=== PATIENT | female | born 1970 | race Caucasian/White ===

== ENCOUNTER 2019-09-28 09:30 | Outpatient (CLI) | payer OTHER, SELFPAY ==
[2019-09-28 10:16] LABS: Alanine Aminotransferase 29 U/L (4-35); Alkaline Phosphatase 102 U/L (38-126); Aspartate Amino Transferase 42 U/L (14-36); Bilirubin,Total 0.4 mg/dL (0.2-1.3); Blood Urea Nitrogen 11 mg/dL (7-17); Calcium 8.3 mg/dL (8.4-10.2); Carbon Dioxide 24 mmol/L (22-30); Chloride 98 mmol/L (98-107); Cholesterol 204 mg/dL (0-200); Estimated Glomerular Filt Rate > 60; Glucose 282 mg/dL (65-105); HDL Direct 38 mg/dL; Potassium 4.5 mmol/L (3.4-5.0); Sodium 137 mmol/L (137-145); Triglycerides 234 mg/dL (<150)
[2019-09-28 10:27] LABS: LDL Cholesterol Direct 138 mg/dL
[2019-09-28 11:07] LABS: Hemoglobin A1C 12.7 % (<5.7)
== END 2019-09-28 09:31 | disposition home or self-care (01) ==
PROVIDERS: PCP Emergency Medicine; Visit Provider Emergency Medicine
DX: E78.2 Mixed hyperlipidemia (principal); E11.9 Type 2 diabetes mellitus without complications
CPT/HCPCS: 36415; 80053; 80061; 83036

== ENCOUNTER 2020-02-08 07:21 | Outpatient (CLI) | payer OTHER, SELFPAY ==
[2020-02-08 08:23] LABS: Alanine Aminotransferase 30 U/L (4-35); Albumin Level 4.1 g/dL (3.5-5.1); Alkaline Phosphatase 102 U/L (38-126); Aspartate Amino Transferase 42 U/L (14-36); Bilirubin,Total 0.3 mg/dL (0.2-1.3); Blood Urea Nitrogen 14 mg/dL (7-17); Calcium 8.7 mg/dL (8.4-10.2); Carbon Dioxide 25 mmol/L (22-30); Chloride 99 mmol/L (98-107); Cholesterol 168 mg/dL (0-200); Estimated Glomerular Filt Rate > 60; Glucose 269 mg/dL (65-105); HDL Direct 38 mg/dL; Potassium 4.5 mmol/L (3.4-5.0); Sodium 134 mmol/L (137-145); Triglycerides 313 mg/dL (<150)
[2020-02-08 08:36] LABS: Hemoglobin A1C 11.7 % (<5.7)
[2020-02-08 08:40] LABS: LDL Cholesterol Direct 87 mg/dL
== END 2020-02-08 07:22 | disposition home or self-care (01) ==
PROVIDERS: PCP Emergency Medicine; Visit Provider Emergency Medicine
DX: E78.5 Hyperlipidemia, unspecified (principal); E11.9 Type 2 diabetes mellitus without complications
CPT/HCPCS: 36415; 80053; 80061; 83036

== ENCOUNTER 2020-05-18 06:55 | Outpatient (CLI) | payer OTHER, SELFPAY ==
[2020-05-18 08:05] LABS: Alanine Aminotransferase 22 U/L (4-35); Albumin Level 4.4 g/dL (3.5-5.1); Alkaline Phosphatase 75 U/L (38-126); Anion Gap 9 mmol/L (8-16); Aspartate Amino Transferase 30 U/L (14-36); Bilirubin,Total 0.3 mg/dL (0.2-1.3); Blood Urea Nitrogen 12 mg/dL (7-17); Calcium 9.3 mg/dL (8.4-10.2); Carbon Dioxide 30 mmol/L (22-30); Chloride 100 mmol/L (98-107); Cholesterol 163 mg/dL (0-200); Estimated Glomerular Filt Rate > 60; Glucose 140 mg/dL (65-105); HDL Direct 37 mg/dL; Potassium 4.3 mmol/L (3.4-5.0); Sodium 139 mmol/L (137-145); Triglycerides 273 mg/dL (<150)
[2020-05-18 08:15] LABS: Creatinine Urine 110.4 mg/dL
[2020-05-18 08:16] LABS: LDL Cholesterol Direct 85 mg/dL
[2020-05-18 08:19] LABS: MALB Creatinine Ratio 35.7 mg/g (0-30); Microalbumin Urine Random 39.4 mg/L (0-16.7)
== END 2020-05-18 06:56 | disposition home or self-care (01) ==
PROVIDERS: PCP Emergency Medicine; Referring Provider Internal Medicine Endocrinology, Diabetes & Metabolism; Visit Provider Emergency Medicine
DX: E78.5 Hyperlipidemia, unspecified (principal); E11.9 Type 2 diabetes mellitus without complications
CPT/HCPCS: 36415; 80053; 80061; 82043; 82607; 84443

== ENCOUNTER 2020-11-21 09:05 | Outpatient (CLI) | payer OTHER, SELFPAY ==
[2020-11-21 10:17] LABS: Hemoglobin A1C 7.4 % (<5.7)
[2020-11-21 10:20] LABS: Alanine Aminotransferase 20 U/L (4-35); Albumin Level 4.3 g/dL (3.5-5.1); Alkaline Phosphatase 65 U/L (38-126); Anion Gap 8 mmol/L (8-16); Aspartate Amino Transferase 34 U/L (14-36); Bilirubin,Total 0.3 mg/dL (0.2-1.3); Blood Urea Nitrogen 14 mg/dL (7-17); Calcium 8.9 mg/dL (8.4-10.2); Carbon Dioxide 26 mmol/L (22-30); Chloride 104 mmol/L (98-107); Cholesterol 159 mg/dL (0-200); Estimated Glomerular Filt Rate > 60; Glucose 108 mg/dL (65-105); HDL Direct 47 mg/dL; Potassium 4.4 mmol/L (3.4-5.0); Sodium 138 mmol/L (137-145); Triglycerides 189 mg/dL (<150)
[2020-11-21 10:32] LABS: LDL Cholesterol Direct 77 mg/dL
[2020-11-21 10:33] LABS: Add Urine Microscopic? YES; Appearance Urine Clear (Clear); Bilirubin Urine Negative (Negative); Blood Urine Negative (Negative); Color Urine Yellow (Yellow); Glucose Urine UA 3+ mg/dL (Negative); Ketones Urine Negative (Negative); Leukocyte Esterase Ur Negative LEU/UL (Negative); Nitrate Urine Negative (Negative); Protein Urine Negative (Negative); RBC Urine 0-2 /hpf (0-2); Squamous Epithelial Cell Urine Moderate /hpf (Few); Urobilinogen Urine Negative mg/dL (<2.0); WBC Urine 0-3 /hpf
[2020-11-21 10:40] LABS: Specific Grav Ur 1.031 (1.001-1.035)
[2020-11-21 11:15] LABS: Creatinine Urine 107.6 mg/dL
[2020-11-21 11:18] LABS: MALB Creatinine Ratio 29.6 mg/g (0-30); Microalbumin Urine Random 31.8 mg/L (0-16.7)
== END 2020-11-21 09:06 | disposition home or self-care (01) ==
PROVIDERS: PCP Emergency Medicine; Referring Provider Internal Medicine Endocrinology, Diabetes & Metabolism; Visit Provider Emergency Medicine
DX: R35.0 Frequency of micturition (principal); E11.9 Type 2 diabetes mellitus without complications; E78.5 Hyperlipidemia, unspecified
CPT/HCPCS: 36415; 80053; 80061; 81001; 82043; 83036

== ENCOUNTER → 2021-01-02 08:36 | Outpatient (CLI) | payer OTHER, SELFPAY ==
--- NOTE | ~2021-01-02 | MM_ITS ---
EXAMINATION: MM screening hanny BI w reynaldo HISTORY: Screening mammogram TECHNIQUE: Craniocaudal and mediolateral oblique 3-D tomosynthesis images were obtained and synthetic 2-D images were generated. CAD analysis was submitted and interpreted. COMPARISON: No prior mammogram is available for comparison at this institution. BREAST PARENCHYMAL COMPOSITION: There are scattered areas of fibroglandular density. FINDINGS: Bilateral mammographic asymmetry. Bilateral diagnostic mammography is recommended, with ult rasound if required. IMPRESSION: 1. Bilateral mammographic asymmetry 2. Bilateral diagnostic mammography is recommended, with ultrasound if required BI-RADS Category 0: Incomplete: Needs additional imaging evaluation. Reviewed, dictated and finalized at location A.
== END ==
PROVIDERS: PCP Emergency Medicine; Visit Provider Emergency Medicine
DX: Z12.31 Encounter for screening mammogram for malignant neoplasm of breast (principal); R92.8 Other abnormal and inconclusive findings on diagnostic imaging of breast
CPT/HCPCS: 77063; 77067

== ENCOUNTER → 2021-02-02 08:33 | Outpatient (CLI) | payer OTHER, SELFPAY ==
--- NOTE | ~2021-02-02 | MMUS_ITS ---
EXAMINATION: MM diagnostic hanny BI w reynaldo, US breast BI limited HISTORY: Bilateral breast asymmetries on screening mammogram TECHNIQUE: Additional 3-D tomosynthesis images of the breasts were performed and synthetic 2-D images were generated. CAD analysis was submitted and interpreted. High resolution limited bilateral breast ultrasound was performed. COMPARISON: 01/02/2021 BREAST PARENCHYMAL COMPOSITION: There are scattered areas of fibroglandular density. FINDINGS: MAMMOGRAPHIC FINDINGS: Right breast: Focal asymmetry in the upper outer quadrant of the right breast disperses with spot com pression. There is no suspicious mass, calcification, or architectural distortion. Left breast: No suspicious mass, calcification, or architectural distortion are identified with spot compression of the breast. ULTRASOUND: There is no evidence of focal abnormal solid or cystic mass in the vicinity of the mammographic findi ngs in question. IMPRESSION: 1. No mammographic or sonographic evidence of malignancy. 2. Recommend routine screening mammography in one year. BI-RADS Category 1: Negative Reviewed, dictated and finalized at location A. IMPRESSION: 1. No mammographic or sonographic evidence of malignancy. 2. Recommend routine screening mammography in one year. BI-RADS Category 1: Negative
== END ==
PROVIDERS: PCP Emergency Medicine; Visit Provider Emergency Medicine
DX: N64.89 Other specified disorders of breast (principal)
CPT/HCPCS: 76642; 77062; 77066; G0279

== ENCOUNTER 2021-05-18 09:26 | Outpatient (CLI) | payer OTHER, SELFPAY ==
[2021-05-18 10:37] LABS: Alanine Aminotransferase 18 U/L (4-35); Albumin Level 4.2 g/dL (3.5-5.1); Alkaline Phosphatase 66 U/L (38-126); Anion Gap 10 mmol/L (8-16); Aspartate Amino Transferase 29 U/L (14-36); Bilirubin,Total 0.5 mg/dL (0.2-1.3); Blood Urea Nitrogen 14 mg/dL (7-17); Calcium 9.1 mg/dL (8.4-10.2); Carbon Dioxide 25 mmol/L (22-30); Chloride 104 mmol/L (98-107); Cholesterol 108 mg/dL (0-200); Estimated Glomerular Filt Rate > 60; Glucose 130 mg/dL (65-110); HDL Direct 45 mg/dL; Potassium 4.4 mmol/L (3.4-5.0); Sodium 139 mmol/L (137-145); Triglycerides 155 mg/dL (<150)
[2021-05-18 10:48] LABS: LDL Cholesterol Direct 44 mg/dL
[2021-05-18 11:29] LABS: Hemoglobin A1C 7.3 % (<5.7)
== END 2021-05-18 09:27 | disposition home or self-care (01) ==
LOC: ANHLAB 09:28
PROVIDERS: PCP Emergency Medicine; Visit Provider Internal Medicine Endocrinology, Diabetes & Metabolism
DX: E78.5 Hyperlipidemia, unspecified (principal); E11.65 Type 2 diabetes mellitus with hyperglycemia; I10 Essential (primary) hypertension
CPT/HCPCS: 36415; 80053; 80061; 82607; 83036

== ENCOUNTER → 2021-06-07 02:13 | Outpatient (CLI) | payer OTHER, SELFPAY ==
[2021-06-07 18:59] LABS: SARS-CoV-2 RNA PCR Negative
== END ==
PROVIDERS: PCP Emergency Medicine; Visit Provider Internal Medicine Cardiovascular Disease
DX: Z01.812 Encounter for preprocedural laboratory examination (principal); Z20.822 Contact with and (suspected) exposure to COVID-19
CPT/HCPCS: C9803; U0003; U0005

== ENCOUNTER 2021-06-09 14:38 | Outpatient (CLI) | payer OTHER, SELFPAY ==
--- NOTE | ~2021-06-09 | US_ITS ---
EXAMINATION: US carotid duplex BI DATE: 06/09/2021 15:25 INDICATION: Carotid stenosis TECHNIQUE: Grayscale, color Doppler, and pulsed Doppler images of the cervical carotid arteries were obtained. The degree of vessel stenosis is placed in one of the following categories: normal, <50%, 5 0-69%, >=70% but less than near-occlusion, near-occlusion, or total occlusion. Note that percent sten osis relative to normal distal artery lumen diameter is indirectly measured from velocity measurement s as described by Willard, et al. Radiology 2003; 229:340-346. Notes: Normal: Peak systolic velocity <125 centimeters/sec and no plaque <50%. Peak systolic velocity <125 ( EDV <40; ICA/CCA PSV ratio <2.0; used these factors only a tandem lesions or low cardiac output or co ntralateral disease) 50-69 %: PSV 125-230 (EDV 40-100; ratio 2-4) >= 70% but less than near occlusion: PSV greater than 230 (EDV > 100; ratio> 4.0) Near Occlusion: PSV that is variable; markedly narrowed lumen Occlusion: Absent flow on color/spectral Doppler and no lumen on figueroa scale. COMPARISON: None. FINDINGS: RIGHT: The right common carotid artery (CCA) peak systolic velocity (PSV) is 106 cm/s. The right internal ca rotid artery (ICA) PSV is 136 cm/s. The right ICA end-diastolic velocity (EDV) is 41 cm/s. The right ICA/CCA PSV ratio is 1.3. The external carotid artery (ECA) PSV is 144 cm/s. There is antegrade flow in the right vertebral artery. LEFT: The left CCA PSV is 92 cm/s. The left ICA PSV is 97 cm/s. The left ICA EDV is 31 cm/s. The left ICA/C CA PSV ratio is 1.0. The ECA PSV is 124 cm/s. There is antegrade flow in the left vertebral artery. IMPRESSION: 1. 50-69% stenosis in the right internal carotid artery by sonographic criteria. 2. Less than 50% stenosis in the left internal carotid artery by sonographic criteria. Reviewed, dictated and finalized at location A. [facility] IMPRESSION: 1. 50-69% stenosis in the right internal carotid artery by sonographic criteria . 2. Less than 50% stenosis in the left internal carotid artery by sonographic cr iteria.
== END 2021-06-09 14:39 | disposition home or self-care (01) ==
PROVIDERS: PCP Emergency Medicine; Visit Provider Emergency Medicine
DX: I65.23 Occlusion and stenosis of bilateral carotid arteries (principal)
CPT/HCPCS: 93880

== ENCOUNTER 2021-06-10 01:41 | Day surgery (SDC) | payer OTHER, SELFPAY ==
[2021-06-09 18:30] VITALS: BMI 36.6
[2021-06-10] VITALS (8 sets, daily range): BP systolic 118–147; BP diastolic 62–88; PULSE 79–88; RESP 14–20; TEMP 36.1; O2SAT 95–99; BMI 36.9
[2021-06-10 07:38] LABS: Basophils Absolute Auto 0.1 K/mm3 (0.0-0.1); Basophils Percent Auto 0.8 % (0.2-1.2); Eosinophils Absolute Auto 0.6 K/mm3 (0-0.3); Eosinophils Percent Auto 8.2 % (0-4.4); Hematocrit 25.5 % (37.0-47.0); Immature Granulocyte Absolute 0.02 K/mm3 (0.00-0.031); Immature Granulocyte Percent A 0.3 % (0-0.5); Lymphocytes Absolute Auto 1.51 K/mm3 (0.9-3.2); Lymphocytes Percent Auto 19.3 % (18.3-44.2); Mean Corpuscular HGB Conc 26.7 g/dl (32-36); Mean Corpuscular Hemoglobin 17.1 pg (26-34); Mean Corpuscular Volume 64.1 fl (80-100); Monocytes Absolute Auto 0.7 K/mm3 (0.1-0.6); Monocytes Percent Auto 8.5 % (2.6-8.5); Neutrophils Absolute Auto 4.9 K/mm3 (1.3-6.7); Neutrophils Percent Auto 62.9 % (45.5-73.1); Platelet Count Result 321 k/mm3 (150-375); Red Blood Count 3.98 M/mm3 (4.2-5.4); Red Cell Distribution Width 20.2 % (11.5-14.5); White Blood Count 7.8 K/mm3 (4.5-10.0)
[2021-06-10 07:50] LABS: Anion Gap 10 mmol/L (8-16); Blood Urea Nitrogen 19 mg/dL (7-17); Calcium 8.7 mg/dL (8.4-10.2); Carbon Dioxide 24 mmol/L (22-30); Chloride 106 mmol/L (98-107); Estimated CRCL calculation 86 ml/min; Estimated Glomerular Filt Rate > 60; Glucose 164 mg/dL (65-110); Potassium 4.3 mmol/L (3.4-5.0); Sodium 140 mmol/L (137-145)
[2021-06-10 07:56] LABS: Hemoglobin 6.8 g/dL (12.0-15.0)
[2021-06-10 07:57] LABS: Hypochromasia 3+ (NORMAL); Ovalocytes 1+ (NORMAL); Platelet Estimate Adequate (Adequate); Polychromasia 1+ (NORMAL)
[2021-06-10 08:31] LABS: Beta HCG Quantitative < 2.39 mIU/ML
--- NOTE | 2021-06-10 08:39 | WPDHPUPDATE1 ---
History and Physical Update Update Date/Time: 06/10/21 08:39 50-year-old female with diabetes and hyperlipidemia who presents with significant MATA. She had early positive regular treadmill stress test, exercising for 2.[address] depression as well as MATA. Her echo showed minimal aortic stenosis, LVH, diastolic dysfunction, EF 69%, aortic valve area 1.2 cm2 with a mean gradient of 10 mmHg. She has had cardiac catheterization for suspected CAD. History and Physical has been reviewed, including an updated exam of the patient. There are NO changes in the patient's condition. Risks, benefits, and alternatives have been discussed and questions answered. Patient agrees to proceed with procedure.
--- NOTE | 2021-06-10 08:42 | WPDMODSED ---
Moderate Sedation Note-Pt Data Patient Data Diagnosis: MATA, early positive treadmill stress test Present Complaint: Patient with significant MATA who had a treadmill stress test showing ST depression after 2.2 minutes of exercise. No typical angina. Echo showed EF 69%, minimal , MAUREEN 1.2 cm2, LVH and diastolic dysfunction. Here for cardiac catheterization for suspicion of CAD. Significant anemia noted on admission labs. Procedure to be performed/Plan: Conscious sedation Left heart catheterization Selective coronary angiography Left ventriculography Possible PCI Allergies Allergy/AdvReac Type Severity Reaction Status Date / Time No Known Allergies Allergy Verified 06/10/21 07:32 Home Medications Medication Instructions Recorded Confirmed Type aspirin 81 mg tablet,delayed 81 mg PO DAILY 09/30/19 06/10/21 History release blood sugar diagnostic #10 each 09/30/19 05/19/21 History lancets #50 each 09/30/19 05/19/21 History blood sugar diagnostic #200 each 01/14/20 05/19/21 Rx blood-glucose meter #1 each 01/14/20 05/19/21 Rx lancets 32 gauge #200 each 01/14/20 05/19/21 Rx empagliflozin 10 mg tablet 10 mg PO DAILY 90 Days #90 tablet 03/29/21 06/10/21 Rx glipizide 5 mg tablet 5 mg PO BID 90 Days #180 tablet 03/29/21 06/10/21 Rx metformin 1,000 mg tablet 1,000 mg PO BID 90 Days #180 tablet 03/29/21 06/10/21 Rx rosuvastatin 20 mg tablet 20 mg PO DAILY #90 tablet 03/29/21 06/10/21 Rx semaglutide 1 mg/dose (2 mg/1.5 1 mg SUB-Q WEEKLY 84 Days #9 ml 03/29/21 06/10/21 Rx mL) subcutaneous pen injector lisinopril 2.5 mg tablet 2.5 mg PO DAILY #90 tablet 06/08/21 06/10/21 Rx multivitamin with minerals [All 1 tablet PO DAILY 06/09/21 06/10/21 History Purpose Multivitamin-Min] Current Medications: Active Medications Sodium Chloride (Normal Saline Iv) 500 mls @ 100 mls/hr IV CONT .Q5H LENORA Sedation/Anesthesia: No previous sedation/anesthesia problems (including family history). 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 Smoking packs per day: 0 Smoking cigarettes per day: 0.0 Years smoked: 0 Smoking pack-years: 0.00 Smoking status: Never smoker Second hand tobacco smoke exposure: Yes Alcohol intake: never Substance use: never Substance use type: does not use Living arrangements: with family Gender identity (if verbalized by the patient): Female Sexual Orientation (if Verbalized by the Patient): Straight or Heterosexual Spiritual care concerns: No Mod Sed Physical Exam Physical Exam Pre Procedural Exam: Normal: Appearance, Eyes, Ears, Nose, Neck, Throat, Lungs, Heart Size, Heart Rate (2/6 VERNELL upper sternal borders), Heart Rhythm, Neuro Exam, Abdomen, Extremities (Intact pedal pulses, good David's test on right hand) and Skin and Variation: Airway (Dental caries and missing teeth) Hours since solid foods: 12 Hours since liquid intake: 12 Mallampati Classification: class III Internal Medicine - PN: Obj Da Vital Signs Vital Signs: Vital Signs - 24 hr 06/10/21 07:35 Temperature 96.9 F L Pulse Rate 88 Respiratory Rate 15 Blood Pressure 147/76 H Pulse Oximetry 99 Meds/Results Medications: Active Medications Generic Name Dose Route Start Last Admin Trade Name Freq PRN Reason Stop Dose Admin Sodium Chloride 500 mls @ 100 mls/hr 06/10/21 07:00 Normal Saline Iv IV CONT .Q5H LENORA Labs CBC & Chem
--- NOTE | 2021-06-10 10:13 | PM.OP ---
Procedure Note - Brief Procedure Note - Brief Date of procedure: 06/10/21 Pre-op diagnosis: abnormal stress test Post-op diagnosis: same Procedure performed: Left heart catheterization with conscious sedation Description of procedure: Uneventful left heart catheterization right radial approach Anesthesia: local (With conscious sedation) Surgeon: Anahi Allison MD Complications: No immediate complications Condition: stable Disposition: observation Findings: Normal coronary arteries Hyperdynamic left ventricle Patient noted to be moderately anemic which may be causing her symptoms of dyspnea.
--- NOTE | 2021-06-10 10:14 | WPDCARDPROC ---
Cardiac Cath Procedure Note Date of procedure:: 06/10/21 Performing physician:: Anahi Allison MD Indication:: MATA Early positive stress test Brief clinical history:: 50-year-old female diabetic with hyperlipidemia who has noted significant MATA recently. Her treadmill stress test showed she could walk for 2.2 minutes but developed significant MATA as well as ST segment depression consistent with ischemia. Her echo showed normal LV function EF 67%, diastolic dysfunction, LVH, and minimal aortic stenosis with a mean gradient of 10 mmHg. She is undergoing cardiac catheterization for suspicion of underlying coronary disease. . Procedure Procedure performed:: Procedure: 1. Conscious sedation 2. Left heart catheterization 3. Selective Coronary angiography 4. Left ventriculography Sedation/Medication given:: Conscious sedation: The patient has no known prior history of adverse affects of conscious sedation. Oropharynx was clear. The patient is deemed a good candidate for conscious sedation. Conscious sedation began at: 0909 Conscious sedation ended at: 0943 Total conscious sedation time: 34 minutes Medications: Versed 2 mg IV push and fentanyl 50 mcg IV push The patient had continuous hemodynamic monitoring, and was also continuously monitored by: Olmstead RN The patient tolerated conscious sedation well. Access site:: Right radial artery Estimated blood loss:: 5 cc Procedure note:: Catheters: 5 [facility] taper arterial jagdish, 5 [facility] Deisy catheters, 5 [facility] pigtail catheter Detailed procedure: After informed consent the patient brought to the track repair laborer. David test was normal. The right radial area was prepped and draped in the usual fashion. After conscious sedation and local anesthesia the right radial artery was punctured with the micro puncture technique using vascular ultrasound guidance and cannulated with the arterial sheath. Selective Coronary angiography was performed with the coronary catheter in multiple projections. This were withdrawn. The pigtail catheter was advanced into the central circulation and left ventricle for pressure measurements and left ventriculography which was performed in the ALBARADO projection. This was withdrawn. Later the arterial sheath was removed and hemostasis was obtained using local pressure with a radial artery band. The patient tolerated the procedure well with no complications. Estimated blood loss was negligible. Findings:: Pressures: Post angiography, the LV pressure was 120/6 mmHg and aorta was 130/60 mmHg. Right coronary artery: The right coronary artery is dominant and was free of disease. It supplied most of the apex. Left coronary artery: The left coronary artery was free of disease. Left ventriculography: Left ventriculography revealed hyperdynamic left ventricular systolic function, EF 75-80%, with no mitral regurgitation . Conclusion:: 1. Normal coronary arteries. 2. Hyperdynamic left ventricular systolic function 3. No significant aortic valve gradient 4. Moderate anemia Recommendations: We will discontinue aspirin and start the patient on iron sulfate 25 m BID. Follow-up with Dr. Delcid for the anemia which may be related to heavy menstrual loss per the patient. Increase physical activity with regular exercise and pursue heart healthy lifestyle. Echo in 3 -5 years to evaluate for progression of her aortic valve disease.
--- NOTE | 2021-06-10 12:37 | SUR.PHASEII ---
IV D/c'd. Catheter intact. No redness or swelling at the site. Discharge instructions reviewed with patient and spouse with stated understanding. Right radial puncture site without signs of hematoma or bleeding. Brisk capillary refill present to right hand. TR Band removed with bandaid intact. Armboard remains to right arm and pt instructed to remove in six hours. Discharged via wheelchair to personal vehicle with spouse driving.
== END 2021-06-10 12:40 | disposition home or self-care (01) ==
PROVIDERS: PCP Emergency Medicine; Visit Provider Internal Medicine Cardiovascular Disease
PROC: 4A023N7 Measurement of Cardiac Sampling and Pressure, Left Heart, Percutaneous Approach (ICD-10-PCS; CPT 93452; principal; 2021-06-10 08:30)
DX: R94.39 Abnormal result of other cardiovascular function study (principal); D64.9 Anemia, unspecified; R06.09 Other forms of dyspnea; E11.9 Type 2 diabetes mellitus without complications; I10 Essential (primary) hypertension; E78.5 Hyperlipidemia, unspecified; Z79.84 Long term (current) use of oral hypoglycemic drugs; Z79.899 Other long term (current) drug therapy
CPT/HCPCS: 36415; 80048; 84702; 84703; 85025; 93458; C1887; C1894; C9803; J1644; J2250; J3010; J7040; U0003; U0005

== ENCOUNTER 2021-06-11 09:50 | Outpatient (CLI) | payer OTHER, SELFPAY ==
[2021-06-11 10:56] LABS: Iron 114 ug/dL (37-170)
[2021-06-11 11:05] LABS: Percent Iron Saturation 24 % (20-50)
[2021-06-15 14:46] LABS: Red Blood Cell Folate >1000 ng/mL RBC (>280)
== END 2021-06-11 09:51 | disposition home or self-care (01) ==
PROVIDERS: PCP Emergency Medicine; Visit Provider Emergency Medicine
DX: D64.9 Anemia, unspecified (principal)
CPT/HCPCS: 36415; 82607; 82747; 83540; 83550

== ENCOUNTER 2021-12-26 10:59 | Emergency (ER) | payer OTHER, SELFPAY ==
[2021-12-26 11:19] VITALS: BP 120/67; PULSE 87; RESP 18; TEMP 36.3; O2SAT 99
--- NOTE | 2021-12-26 12:07 | ED.URI ---
HPI - URI/Sore Throat General Chief Complaint: Upper Respiratory Infection Stated Complaint: + covid home test History of Present Illness HPI Narrative: 51-year-old female who presents to [facility] care with complaints of feeling cold chills on Monday with noting elevated temperature up to 101.9 on Monday, some nasal drainage and dry cough. She tested at home today and was COVID positive but work will not accept a home test. Patient states tested positive on Monday she went to [facility] on and tested negative.Patient denies any acute cough or any shortness of breath has been taking Motrin fo her fever. Patient reports that she has had COVID vaccinations but no booster, has had flu shot. MD elicited complaint: other (COVID) Pertinent past history: other ( COVID-positive) Onset (ago): day(s) (3) Treatments prior to arrival: ibuprofen Related Data Home Medications Medication Instructions Recorded Confirmed blood sugar diagnostic (Contour #10 ea 09/30/19 08/24/21 Test Strips) lancets (Lancets,Ultra Thin) #50 ea 09/30/19 08/24/21 multivitamin with minerals 1 tablet PO DAILY 06/09/21 08/24/21 mecobalamin (vitamin B12) 5,000 1 mcg PO DAILY 12/26/21 12/26/21 mcg disintegrating tablet Allergies Allergy/AdvReac Type Severity Reaction Status Date / Time No Known Allergies Allergy Verified 12/26/21 11:49 Review of Systems Review of Systems: CONSTITUTIONAL: Positive fever, chills, or sweats. EYES: Denies visual changes, redness, or discharge. ENT: Positive for rhinorrhea, congestion,no sore throat, or otalgia. CARDIOVASCULAR: Denies chest pain, palpitations, or edema. RESPIRATORY: Positive for cough denies dyspnea. GASTROINTESTINAL: Denies abdominal pain, nausea, vomiting, or diarrhea. GENITOURINARY: Denies dysuria or hematuria. SKIN: Denies rash or itching. MUSCULOSKELETAL: Denies back pain, joint pain, or myalgia. NEUROLOGIC: Denies headache, numbness, or weakness. PSYCHIATRIC: Denies anxiety or depression. [facility] Past Medical History Medical History Acute non-recurrent frontal sinusitis Body mass index (BMI) of 50-59.9 in adult (07/05/16) Body mass index [BMI] 36.0-36.9, adult (07/05/16) Body mass index [BMI] 37.0-37.9, adult (09/02/17) Body mass index [BMI] 38.0-38.9, adult (04/27/17) Cellulitis of skin Diabetes mellitus HLD (hyperlipidemia) HTN (hypertension) Family History Family History Father Acute myocardial infarction, Onset Age: 74 Heart attack or sudden cardiac age 74 Mother Heart disease of heart attack and sepsis age 72 Diabetes mellitus Other Chest pain Social History Social History Social History: , 1 daughter, 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 Smoking packs per day: 0 Smoking cigarettes per day: 0.0 Years smoked: 0 Smoking pack-years: 0.00 Smoking status: Never smoker Second hand tobacco smoke exposure: Yes Alcohol intake: never Substance use: never Substance use type: does not use Gender identity (if verbalized by the patient): Female Sexual Orientation (if Verbalized by the Patient): Straight or Heterosexual Spiritual care concerns: No Comments At time of signature, agree with nursing past medical, surgical, social and family history. There is no relevant family history pertinent to the presenting complaint Exam Narrative: GENERAL: Well-appearing, well-nourished, and in no acute distress. HEAD: Normocephalic, atraumatic. EYES: PERRLA and EOMI. ENT: Nares with minimal redness, clear rhinorrhea no epistaxis. Mucous membranes moist.TM's normal with good light reflex, throat pink with no lesions or exudates or any tonsil swelling NECK: Supple.no lymphadenopathy CHEST: Clear to auscultation. No respiratory distress.SAO2 99% on room air HEART: R
== END 2021-12-26 12:26 | disposition home or self-care (01) ==
PROVIDERS: Emergency Provider Registered Nurse; PCP Emergency Medicine
DX: U07.1 COVID-19 (principal); E11.9 Type 2 diabetes mellitus without complications; E78.5 Hyperlipidemia, unspecified; I10 Essential (primary) hypertension
CPT/HCPCS: 87426; 99212; C9803; G0463

== ENCOUNTER 2022-06-13 10:00 | Outpatient (CLI) | payer OTHER, SELFPAY ==
[2022-06-13 10:33] LABS: Anion Gap 11 mmol/L (8-16); Blood Urea Nitrogen 16 mg/dL (7-17); Calcium 8.6 mg/dL (8.4-10.2); Carbon Dioxide 21 mmol/L (22-30); Chloride 107 mmol/L (98-107); Cholesterol 135 mg/dL (0-200); Estimated Glomerular Filt Rate > 60; Glucose 182 mg/dL (65-110); HDL Direct 41 mg/dL; Sodium 139 mmol/L (137-145); Triglycerides 211 mg/dL (<150)
[2022-06-13 10:45] LABS: LDL Cholesterol Direct 56 mg/dL
[2022-06-13 11:02] LABS: Creatinine Urine 65.9 mg/dL
[2022-06-13 11:07] LABS: MALB Creatinine Ratio 33.5 mg/g (0-30); Microalbumin Urine Random 22.1 mg/L (0-16.7)
== END 2022-06-13 10:01 | disposition home or self-care (01) ==
PROVIDERS: PCP Emergency Medicine; Visit Provider Internal Medicine Endocrinology, Diabetes & Metabolism
DX: E11.65 Type 2 diabetes mellitus with hyperglycemia (principal); E78.5 Hyperlipidemia, unspecified
CPT/HCPCS: 36415; 80048; 80061; 82043; 84443

== ENCOUNTER 2022-10-10 01:55 | Emergency (ER) | payer OTHER, SELFPAY ==
[2022-10-10 01:56] VITALS: BP 174/75; PULSE 81; RESP 16; TEMP 36.7; O2SAT 100
[2022-10-10 02:56] VITALS: BP 164/74; PULSE 81; RESP 16; TEMP 37.3; O2SAT 100
--- NOTE | 2022-10-10 03:02 | ED.DENTAL ---
HPI - Dental/Oral General Chief complaint: Dental/Oral Stated complaint: right sided dental abscess Time Seen by Provider: 10/10/22 02:35 History of Present Illness HPI Narrative: Patient is a 52-year-old female here for evaluation of right-sided dental pain over the past several days. Patient has numerous dental caries and cracked teeth. She has a dentist but has been unable to get into see them recently. Denies any trismus, difficulty tolerating her secretions, fevers or chills, nausea or vomiting. Has used ibuprofen and Tylenol with moderate relief of her symptoms. Related Data Home Medications Medication Instructions Recorded Confirmed blood sugar diagnostic (Contour #10 ea 09/30/19 09/07/22 Test Strips) lancets (Lancets,Ultra Thin) #50 ea 09/30/19 09/07/22 multivitamin with minerals 1 tablet PO DAILY 06/09/21 09/07/22 mecobalamin (vitamin B12) 5,000 1 mcg PO DAILY 12/26/21 09/07/22 mcg disintegrating tablet Allergies Allergy/AdvReac Type Severity Reaction Status Date / Time No Known Allergies Allergy Verified 10/10/22 01:56 Review of Systems Review of Systems: Gen.: Denies fevers or chills Eyes: Denies eye pain or visual change ENT: Reports dental pain Respiratory: Denies shortness of breath or cough CV: Denies chest pain or palpitations GI: Denies abdominal pain nausea, emesis or diarrhea denies burning, urgency, frequency or hematuria Musculoskeletal: Denies back pain or muscle pain Neuro: Denies numbness, tingling, weakness or focal weakness Skin: Denies rash Except as documented, all other systems reviewed and negative [facility] Past Medical History Medical History Acute non-recurrent frontal sinusitis Anemia Bilateral carotid bruits Body mass index (BMI) of 50-59.9 in adult (07/05/16) Cellulitis of skin COVID-19 HLD (hyperlipidemia) HTN (hypertension) Hypertriglyceridemia Low vitamin B12 level Stress incontinence Type 2 diabetes mellitus with hyperglycemia, without long-term current use of insulin Vitamin D deficiency Surgical History Surgical History H/O vaginal surgery removal of lump Family History Family History Father Acute myocardial infarction, Onset Age: 74 Heart attack or sudden cardiac age 74 Mother Heart disease of heart attack and sepsis age 72 Diabetes mellitus Other Chest pain Social History Social History Social History: , 1 daughter, 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 Smoking packs per day: 0 Smoking cigarettes per day: 0.0 Years smoked: 0 Smoking pack-years: 0.00 Smoking status: Never smoker Second hand tobacco smoke exposure: Yes Alcohol intake: never Substance use: never Substance use type: does not use Living arrangements: with family Gender identity (if verbalized by the patient): Female Sexual Orientation (if Verbalized by the Patient): Straight or Heterosexual Spiritual care concerns: No Exam Narrative: APPEARANCE: Well appearing, no pain in distress, well-nourished. Head: Normocephalic and atraumatic. EYES: PERRLA/EOMI, conjunctivae clear NOSE: No nasal drainage EARS: External ear normal in appearance THROAT: Swelling over the right maxillofacial area with no cellulitis or fluctuance appreciated. No visible periapical abscess. No trismus. NECK: Supple. No adenopathy, no masses. RESPIRATORY: Airway patent, respirations nonlabored. Clear to auscultation bilaterally, no rales, rhonchi, wheezing. CARDIOVASCULAR: Regular rate and rhythm without murmurs, rubs, or gallops. ABDOMINAL: Normoactive bowel sounds. Soft, nontender, nondistended. No rebound tenderness or guarding. MUSCULOSKELETAL: Extremities are warm and well-perfused. Moves all extrem
[2022-10-10] MEDS: traMADol HCL (*CRX) 50 MG TABLET PO (03:14)
[2022-10-10] MEDS: AMOXICILLIN/CLAVULANATE K 875-125 MG TAB 1 TABLET PO (03:14)
== END 2022-10-10 03:35 | disposition home or self-care (01) ==
PROVIDERS: Emergency Provider Physician Assistant; PCP Emergency Medicine
DX: K08.89 Other specified disorders of teeth and supporting structures (principal); G89.29 Other chronic pain; E78.5 Hyperlipidemia, unspecified; I10 Essential (primary) hypertension; E78.1 Pure hyperglyceridemia; E11.9 Type 2 diabetes mellitus without complications; N39.3 Stress incontinence (female) (male); E55.9 Vitamin D deficiency, unspecified; Z86.16 Personal history of COVID-19; Z86.2 Personal history of diseases of the blood and blood-forming organs and certain disorders involving the immune mechanism; Z79.84 Long term (current) use of oral hypoglycemic drugs; Z79.85 Long-term (current) use of injectable non-insulin antidiabetic drugs; Z79.899 Other long term (current) drug therapy
CPT/HCPCS: 99283; A9270

== ENCOUNTER 2023-01-28 08:42 | Outpatient (CLI) | payer OTHER, SELFPAY ==
--- NOTE | 2023-01-28 08:58 | ECG_ITS ---
Measurements Intervals [place] Rate: 72 P: 43 IL: 163 QRS: 58 QRSD: 97 T: 1 QT: 394 QTc: 432 Interpretive Statements SINUS RHYTHM NORMAL ECG NO PREVIOUS ECG AVAILABLE FOR COMPARISON Electronically Signed On 01-28-2023 10:30:56 CDT by Maurilio Mac D.O.
[2023-01-28 09:23] LABS: Hematocrit 37.5 % (37.0-47.0); Hemoglobin 11.7 g/dL (12.0-15.0)
[2023-01-28 09:24] LABS: Anion Gap 8 mmol/L (8-16); Blood Urea Nitrogen 17 mg/dL (7-17); Carbon Dioxide 30 mmol/L (22-30); Chloride 101 mmol/L (98-107); Estimated Glomerular Filt Rate > 60; Glucose 159 mg/dL (65-110); Sodium 139 mmol/L (137-145)
== END 2023-01-28 08:43 | disposition home or self-care (01) ==
PROVIDERS: PCP Emergency Medicine; Visit Provider Anesthesiology
DX: E11.65 Type 2 diabetes mellitus with hyperglycemia (principal); D64.9 Anemia, unspecified; Z01.818 Encounter for other preprocedural examination
CPT/HCPCS: 36415; 80048; 85014; 85018; 93005

== ENCOUNTER 2023-02-01 05:58 | Day surgery (SDC) | payer OTHER, SELFPAY ==
[2023-01-26 08:35] VITALS: BMI 34.0
--- NOTE | 2023-01-26 08:50 | PC.NURSE ---
Report to the Outpatient Waiting Room, entrance under the green pavilion located off [facility], at time 6:00 on date 02/01/23. Planned Procedure Time: 7:30. Time changes happen often and if your time is changed the preop area will call you the afternoon before. - You and your visitor will be asked to self-screen and do not enter if you have any COVID symptoms. - A mask is optional within the hospital at this time. Patients may have clear liquids (water, carbonated beverages, clear teas, apple juice) until 3 hours prior to surgery (4:30) with a maximum of 20 ounces. - No food from midnight until time of surgery Take the following medications with a SIP of water the morning of surgery: NONE DO NOT STOP ANY OF YOUR OTHER PRESCRIPTION MEDICATIONS PRIOR TO SURGERY EXCEPT THE FOLLOWING Medications to discontinue per physician: VITAMINS/SUPPLEMENTS Date to take last dose: 01/28/23 Please no make-up, nail indonesian, hairspray, perfume, deodorant, or body powder the day of surgery. No jewelry (including any body piercings) or valuables the day of surgery, leave them at home. Please take a shower or bath the night before, or the morning of, surgery with an antibacterial soap. Wear comfortable, loose fitting clothing. - Jewelry must be removed prior to entering the operating room. Rings and piercings that are not removed may be cut off. - The hospital will not accept responsibility for valuables. - Please leave all valuables, including medications, at home the day of surgery. If you are going home after surgery, a licensed compressed air pile driver operator must drive you home. - NO public transportation without another adult if you receive anesthesia. - We recommend that an adult stay with you for 24 hours following discharge. - We also recommend that you do not drive, make important decision, drink alcoholic beverages, or take any drugs that were not prescribed by your health care provider for at least 24 hours after your discharge time. Follow any additional instructions given to you from your surgeon. If you or anyone in your household have experienced Covid symptoms in the past week, please notify your surgeon or the nurse liaison at the phone number below for possible testing. Telephone instructions given to PT - BROCK GONSALEZ and asked if any additional questions and then verbalized understanding. Patient advised to call surgeon office or pre surgery nurse liaison [phone] if any additional questions.
--- NOTE | 2023-01-30 13:37 | WPDANESEPPF ---
Anes - Initial Pre Proc Eval Procedure: Operation Date: 02/01/23 07:30 Proposed Procedures p Hysteroscopy Dilation and Curettage - Atif Salcedo MD Date/Time: 01/30/23 13:37 Surgeon: Atif Salcedo MD Pre Op Diagnosis: Abnormal uterine bleeding Patient Data Age: 52 Gender: F Height: 1.57 m Weight: 84.4 kg Allergies Allergy/AdvReac Type Severity Reaction Status Date / Time No Known Allergies Allergy Verified 02/01/23 06:34 Home Medications Medication Instructions Recorded Confirmed Type blood sugar diagnostic (Contour #10 ea 09/30/19 02/01/23 History Test Strips) lancets (Lancets,Ultra Thin) #50 ea 09/30/19 02/01/23 History blood sugar diagnostic (Blood #200 ea 01/14/20 02/01/23 Rx Glucose Test strips) blood-glucose meter #1 ea 01/14/20 02/01/23 Rx lancets 32 gauge #200 ea 01/14/20 02/01/23 Rx multivitamin with minerals 1 tablet PO DAILY 06/09/21 02/01/23 History mecobalamin (vitamin B12) 5,000 1 mcg PO DAILY 12/26/21 02/01/23 History mcg disintegrating tablet ferrous sulfate 325 mg (65 mg 325 mg PO BID #180 tabs 01/26/22 02/01/23 Rx iron) tablet semaglutide 2 mg/dose (8 mg/3 mL) 2 mg (0.75 mL) subcut WEEKLY 90 05/31/22 02/01/23 Rx subcutaneous pen injector days #9.75 mL empagliflozin 25 mg tablet 25 mg PO DAILY 90 days #90 tabs 06/01/22 02/01/23 Rx rosuvastatin 20 mg tablet 20 mg PO DAILY 90 days #90 tabs 06/01/22 02/01/23 Rx metformin 1,000 mg tablet 1,000 mg PO BID 3 months #180 tabs 12/09/22 02/01/23 Rx lisinopril 2.5 mg tablet See Rx Instructions .Route 12/29/22 02/01/23 Rx .COMPLEX #90 tabs biotin 10,000 mcg chewable tablet 100,000 mcg PO DAILY 01/26/23 02/01/23 History (Hair, Skin and Nails (biotin)) Other studies: echo showed normal LV function EF 67%, diastolic dysfunction, LVH, and minimal aortic stenosis cath: 1.? Normal coronary arteries.? 2.? Hyperdynamic left ventricular systolic function 3.? No significant aortic valve gradient 4.? Moderate anemia Patient hx anesthesia problems: none Family hx anesthesia problems: none Results Review: All pre-operative results and documents have been reviewed as part of the pre-operative evaluation. [facility] Past Medical History Medical History Acute non-recurrent frontal sinusitis Anemia Bilateral carotid bruits Body mass index (BMI) of 50-59.9 in adult (07/05/16) Cellulitis of skin COVID-19 HLD (hyperlipidemia) HTN (hypertension) Hypertriglyceridemia Low vitamin B12 level Stress incontinence Type 2 diabetes mellitus with hyperglycemia, without long-term current use of insulin Vitamin D deficiency Surgical History Surgical History H/O vaginal surgery removal of lump Family History Family History Father Acute myocardial infarction, Onset Age: 74 Heart attack or sudden cardiac age 74 Mother Heart disease of heart attack and sepsis age 72 Diabetes mellitus Other Chest pain Social History Social History Social History: , 1 daughter, 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 Smoking packs per day: 0 Smoking cigarettes per day: 0.0 Years smoked: 0 Smoking pack-years: 0.00 Smoking status: Never smoker Second hand tobacco smoke exposure: Yes Alcohol intake: never Substance use: never Substance use type: does not use Living arrangements: with family Gender identity (if verbalized by the patient): Female Sexual Orientation (if Verbalized by the Patient): Straight or Heterosexual Spiritual care concerns: No Anes - Eval Final PreProcedure Day of Procedure 01/30/23 13:37 Patient weight: obese Heart: regular rate and rhythm Lungs: clear to auscultation and normal air movement Airway: Mallampati
[2023-02-01 06:15] VITALS: BP 129/68; PULSE 73; RESP 18; TEMP 36.1; O2SAT 100
[2023-02-01] MEDS: ACETAMINOPHEN 500 MG TABLET 1000 MG PO (07:00)
[2023-02-01] MEDS: LACTATED RINGERS 1,000 ML 30 ML IV CONT (07:00)
[2023-02-01 07:08] LABS: Glucose Point of Care 154 mg/dl (65-105)
--- NOTE | 2023-02-01 07:27 | PM.IMHP ---
H&P: HPI History of Present Illness Date/Time: 02/01/23 07:27 Chief Complaint: bleeding every day Narrative: 52 y/o presented to the office with complaints of bleeding everyday for the last few months. she has not seen a level vial sealer in years and is concerned. she has never had irregular bleeding before. she has not stopped cycles yet. Review of Systems Review of Systems: All systems reviewed & are unremarkable except as noted in HPI and below PMFSH Past Medical History Medical History Acute non-recurrent frontal sinusitis Anemia Bilateral carotid bruits Body mass index (BMI) of 50-59.9 in adult (07/05/16) Cellulitis of skin COVID-19 HLD (hyperlipidemia) HTN (hypertension) Hypertriglyceridemia Low vitamin B12 level Stress incontinence Type 2 diabetes mellitus with hyperglycemia, without long-term current use of insulin Vitamin D deficiency Surgical History Surgical History H/O vaginal surgery removal of lump Family History Family History Father Acute myocardial infarction, Onset Age: 74 Heart attack or sudden cardiac age 74 Mother Heart disease of heart attack and sepsis age 72 Diabetes mellitus Other Chest pain Social History Social History Social History: , 1 daughter, 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 Smoking packs per day: 0 Smoking cigarettes per day: 0.0 Years smoked: 0 Smoking pack-years: 0.00 Smoking status: Never smoker Second hand tobacco smoke exposure: Yes Alcohol intake: never Substance use: never Substance use type: does not use Living arrangements: with family Gender identity (if verbalized by the patient): Female Sexual Orientation (if Verbalized by the Patient): Straight or Heterosexual Spiritual care concerns: No Meds Home Medications and Allergies Home Medications Medication Instructions Recorded Confirmed Type blood sugar diagnostic (Contour #10 ea 09/30/19 02/01/23 History Test Strips) lancets (Lancets,Ultra Thin) #50 ea 09/30/19 02/01/23 History blood sugar diagnostic (Blood #200 ea 01/14/20 02/01/23 Rx Glucose Test strips) blood-glucose meter #1 ea 01/14/20 02/01/23 Rx lancets 32 gauge #200 ea 01/14/20 02/01/23 Rx multivitamin with minerals 1 tablet PO DAILY 06/09/21 02/01/23 History mecobalamin (vitamin B12) 5,000 1 mcg PO DAILY 12/26/21 02/01/23 History mcg disintegrating tablet ferrous sulfate 325 mg (65 mg 325 mg PO BID #180 tabs 01/26/22 02/01/23 Rx iron) tablet semaglutide 2 mg/dose (8 mg/3 mL) 2 mg (0.75 mL) subcut WEEKLY 90 05/31/22 02/01/23 Rx subcutaneous pen injector days #9.75 mL empagliflozin 25 mg tablet 25 mg PO DAILY 90 days #90 tabs 06/01/22 02/01/23 Rx rosuvastatin 20 mg tablet 20 mg PO DAILY 90 days #90 tabs 06/01/22 02/01/23 Rx metformin 1,000 mg tablet 1,000 mg PO BID 3 months #180 tabs 12/09/22 02/01/23 Rx lisinopril 2.5 mg tablet See Rx Instructions .Route 12/29/22 02/01/23 Rx .COMPLEX #90 tabs biotin 10,000 mcg chewable tablet 100,000 mcg PO DAILY 01/26/23 02/01/23 History (Hair, Skin and Nails (biotin)) Allergies Allergy/AdvReac Type Severity Reaction Status Date / Time No Known Allergies Allergy Verified 02/01/23 06:34 Vital Signs Vital Signs - 24 hr 02/01/23 06:15 Temperature 97.0 F L Pulse Rate 73 Respiratory Rate 18 Blood Pressure 129/68 Pulse Oximetry 100 Oxygen Delivery Room Air Exam Const: General: no acute distress Chest: Chest palpation & inspection: normal inspection of the chest Resp: Effort & Inspection: normal respiratory effort Cardio: Rate: regular rate Rhythm: regular rhythm : External Female Exam: normal external appearance Speculum Exam - Vagina: normal appearance of the vagina Speculum Exam - Cervi
--- NOTE | 2023-02-01 07:31 | WPDHPUPDATE1 ---
History and Physical Update Update Date/Time: 02/01/23 07:31 History and Physical has been reviewed, including an updated exam of the patient. There are NO changes in the patient's condition. Risks, benefits, and alternatives have been discussed and questions answered. Patient agrees to proceed with procedure.
[2023-02-01] MEDS: LIDOCAINE HCL 1% LOCAL INJ 20 ML VIAL 10 ML INFILTRATE (07:46)
[2023-02-01 08:10] VITALS: BP 120/67; PULSE 81; RESP 14; O2SAT 94
--- NOTE | 2023-02-01 08:10 | W.PM.PROC2 ---
Procedure Note - Detailed Date of Procedure 02/01/23 Pre-op Diagnosis Abnormal uterine bleeding Post-op Diagnosis Other (polyps) Procedure Performed Hysterocopy with dilation and curettage and aveta polyp removal Surgeon Atif Salcedo MD Anesthesia MAC and Local (10 cc of Lidocaine with epi ) Findings polyps Description of Procedure patient was taken to OR with IV running. She was prepared and draped in a normal sterile fashion. Speculum placed and anterior portion of cervix grasped with a single tooth tenaculum. The uterus was sounded to 7 cm and the cervix was serially dilated with vivi dilators to a 7. the hysteroscope was introduced and three polyps noted. the aveta device introduced to hysteroscope and activated the polyps were transected. the uterus cavity was intact bilateral ostia noted. the hysterscope and aveta removed and a sharp curettage was performed in all four quadrants for a sharp gritty texture. All instruments removed. hemostasis assured. sponge laps and needle counts were correct. patient tolerated procedure well. Estimated Blood Loss 10 Drains No Packing No Pathology Yes Complications None Condition Stable Disposition PACU
[2023-02-01 08:17] LABS: Glucose Point of Care 144 mg/dl (65-105)
[2023-02-01 08:40] VITALS: BP 122/70; PULSE 69; RESP 14
[2023-02-01 09:15] VITALS: BP 122/68; PULSE 67; RESP 14
== END 2023-02-01 09:25 | disposition home or self-care (01) ==
PROVIDERS: PCP Emergency Medicine; Visit Provider Obstetrics & Gynecology
PROC: 0U5B8ZZ Destruction of Endometrium, Via Natural or Artificial Opening Endoscopic (ICD-10-PCS; CPT 58563; principal; 2023-02-01 07:30)
DX: N93.9 Abnormal uterine and vaginal bleeding, unspecified (principal); N84.0 Polyp of corpus uteri; D64.9 Anemia, unspecified; I10 Essential (primary) hypertension; E78.5 Hyperlipidemia, unspecified; E11.9 Type 2 diabetes mellitus without complications; E78.1 Pure hyperglyceridemia; E53.8 Deficiency of other specified B group vitamins; E55.9 Vitamin D deficiency, unspecified; Z79.84 Long term (current) use of oral hypoglycemic drugs; Z79.899 Other long term (current) drug therapy; E66.9 Obesity, unspecified; Z68.33 Body mass index [BMI] 33.0-33.9, adult
CPT/HCPCS: 58558; 36415; 80048; 82948; 85014; 85018; 88305; 93005; A9270; J2250; J2704; J3010; J7120

== ENCOUNTER → 2023-03-04 08:10 | Outpatient (CLI) | payer OTHER, SELFPAY ==
--- NOTE | ~2023-03-04 | MM_ITS ---
EXAMINATION: MM screening [facility] BI w reynaldo HISTORY: Screening mammogram TECHNIQUE: Craniocaudal and mediolateral oblique 3-D tomosynthesis images were obtained and synthetic 2-D images were generated. CAD analysis was submitted and interpreted. COMPARISON: 02/02/2021, 01/02/2021 BREAST PARENCHYMAL COMPOSITION: There are scattered areas of fibroglandular density. FINDINGS: No suspicious mass, calcification, or architectural distortion are identified in either unique ast to suggest malignancy. There has been no suspicious interval change. IMPRESSION: 1. No mammographic evidence of malignancy. 2. Recommend routine screening mammography in one year. BI-RADS Category 1: Negative Reviewed, dictated and finalized at location A.
--- NOTE | ~2023-03-04 | US_ITS ---
Pelvic ultrasound. Clinical History: Abnormal uterine bleeding Technique: Realtime transabdominal and transvaginal scanning of the pelvis was performed. Color flow Doppler and Doppler spectral analysis were performed. Findings: The uterus is anteverted. The endometrial stripe has a thickness of 3 mm. There is a proba ble ill-defined uterine fibroid measuring 2.3 cm in diameter. Additional probable ill-defined partial ly exophytic posterior wall fibroid measuring 3 cm is present. Prominent cervical nabothian cysts are noted. Neither ovary seen. No other adnexal mass seen. There is no evidence of free fluid in the cul de sac. Impression: Probably uterine fibroids, as detailed above. Reviewed, dictated and finalized at location M. Impression: Probably uterine fibroids, as detailed above.
== END ==
PROVIDERS: PCP Emergency Medicine; Visit Provider Obstetrics & Gynecology
DX: Z12.31 Encounter for screening mammogram for malignant neoplasm of breast (principal); N93.9 Abnormal uterine and vaginal bleeding, unspecified
CPT/HCPCS: 76830; 76856; 77063; 77067

== ENCOUNTER 2023-05-27 10:30 | Outpatient (CLI) | payer OTHER, SELFPAY ==
[2023-05-27 12:05] LABS: Vitamin B12 > 1000.0 pg/mL (239-931)
[2023-05-27 12:31] LABS: Creatinine Urine 77.8 mg/dL
[2023-05-27 12:42] LABS: Vitamin D 25 Hydroxy 49.6 ng/mL
[2023-05-27 13:08] LABS: MALB Creatinine Ratio 616.6 mg/g (0-30); Microalbumin Urine Random 479.7 mg/L (0-16.7)
== END 2023-05-27 10:31 | disposition home or self-care (01) ==
LOC: ANHLAB 10:32
PROVIDERS: PCP Emergency Medicine; Visit Provider Internal Medicine Endocrinology, Diabetes & Metabolism
DX: N39.3 Stress incontinence (female) (male) (principal); E11.65 Type 2 diabetes mellitus with hyperglycemia
CPT/HCPCS: 36415; 82043; 82306; 82607

== ENCOUNTER 2024-02-20 08:11 | Outpatient (CLI) | payer OTHER, SELFPAY ==
[2024-02-20 09:20] LABS: Alanine Aminotransferase 19 U/L (6-35); Albumin Level 4.6 g/dL (3.5-5.1); Alkaline Phosphatase 73 U/L (38-126); Anion Gap 10 mmol/L (4-12); Aspartate Amino Transferase 24 U/L (14-36); Bilirubin,Total 0.6 mg/dL (0.2-1.3); Blood Urea Nitrogen 15 mg/dL (7-17); Calcium 9.1 mg/dL (8.4-10.2); Carbon Dioxide 27 mmol/L (22-30); Chloride 99 mmol/L (98-107); Cholesterol 131 mg/dL (0-200); Estimated Glomerular Filt Rate > 60; Glucose 153 mg/dL (65-110); HDL Direct 44 mg/dL; Potassium 4.4 mmol/L (3.4-5.0); Sodium 136 mmol/L (137-145); Triglycerides 231 mg/dL (<150)
[2024-02-20 09:29] LABS: LDL Cholesterol Direct 58 mg/dL
[2024-02-20 09:33] LABS: Free T4 Free Thyroxine 0.95 ng/mL (0.78-2.19)
[2024-02-20 09:45] LABS: Thyroid Stimulating Hormone 0.845 uIU/mL (0.465-4.680)
[2024-02-20 09:49] LABS: Creatinine Urine 57.6 mg/dL
[2024-02-20 09:49] LABS: Hemoglobin A1C 7.5 % (<5.7)
[2024-02-20 10:10] LABS: MALB Creatinine Ratio < 10.4 mg/g (0-30); Microalbumin Urine Random < 6.0 mg/L (0-16.7)
[2024-02-20 10:25] LABS: Folic Acid > 20.0 ng/mL (2.76->20)
== END 2024-02-20 08:12 | disposition home or self-care (01) ==
PROVIDERS: PCP Emergency Medicine; Referring Provider Emergency Medicine; Visit Provider Nurse Practitioner Family
DX: E55.9 Vitamin D deficiency, unspecified (principal); E11.9 Type 2 diabetes mellitus without complications; E78.1 Pure hyperglyceridemia; E78.5 Hyperlipidemia, unspecified; I10 Essential (primary) hypertension; R79.89 Other specified abnormal findings of blood chemistry; E53.8 Deficiency of other specified B group vitamins
CPT/HCPCS: 36415; 80053; 80061; 82043; 82306; 82607; 82746; 83036; 84439; 84443

== ENCOUNTER 2024-06-14 10:48 | Outpatient (CLI) | payer OTHER, SELFPAY ==
--- NOTE | ~2024-06-14 | MM_ITS ---
EXAMINATION: MM screening [facility] BI w reynaldo HISTORY: Screening mammogram TECHNIQUE: Craniocaudal and mediolateral oblique 3-D tomosynthesis images were obtained and synthetic 2-D images were generated. CAD analysis was submitted and interpreted. COMPARISON: 03/04/2023, 02/02/2021, 01/02/2021 BREAST PARENCHYMAL COMPOSITION:Not Dense. There are scattered areas of fibroglandular density. FINDINGS: No suspicious mass, calcification, or architectural distortion are identified in either unique ast to suggest malignancy. There has been no suspicious interval change. IMPRESSION: No mammographic evidence of malignancy. Recommend routine screening mammography in one year. BI-RADS Category 1: Negative Reviewed, dictated and finalized at location . D TECHNICIAN SUPERVISOR
== END 2024-06-14 10:49 | disposition home or self-care (01) ==
LOC: MICIMG 10:50
PROVIDERS: PCP Obstetrics & Gynecology; Visit Provider Emergency Medicine
DX: Z12.31 Encounter for screening mammogram for malignant neoplasm of breast (principal)
CPT/HCPCS: 77063; 77067

== ENCOUNTER 2024-08-17 12:42 | Outpatient (CLI) | payer OTHER, SELFPAY ==
[2024-08-17 13:35] LABS: Alanine Aminotransferase 18 U/L (6-35); Albumin Level 4.2 g/dL (3.5-5.1); Alkaline Phosphatase 75 U/L (38-126); Anion Gap 10 mmol/L (4-12); Aspartate Amino Transferase 25 U/L (14-36); Bilirubin,Total 0.7 mg/dL (0.2-1.3); Blood Urea Nitrogen 18 mg/dL (7-17); Calcium 9.1 mg/dL (8.4-10.2); Carbon Dioxide 25 mmol/L (22-30); Chloride 104 mmol/L (98-107); Cholesterol 124 mg/dL (0-200); Estimated Glomerular Filt Rate > 60; Glucose 121 mg/dL (65-110); HDL Direct 48 mg/dL; Sodium 139 mmol/L (137-145); Triglycerides 162 mg/dL (<150)
[2024-08-17 13:44] LABS: Creatinine Urine 71.6 mg/dL
[2024-08-17 13:45] LABS: LDL Cholesterol Direct 47 mg/dL
[2024-08-17 14:02] LABS: Vitamin D 25 Hydroxy 44.9 ng/mL
[2024-08-17 14:51] LABS: MALB Creatinine Ratio < 8.4 mg/g (0-30); Microalbumin Urine Random < 6.0 mg/L (0-16.7)
== END 2024-08-17 12:43 | disposition home or self-care (01) ==
PROVIDERS: PCP Emergency Medicine; Visit Provider Emergency Medicine
DX: E11.9 Type 2 diabetes mellitus without complications (principal); E55.9 Vitamin D deficiency, unspecified; E78.5 Hyperlipidemia, unspecified
CPT/HCPCS: 36415; 80053; 80061; 82043; 82306

== ENCOUNTER 2025-06-20 09:39 | Outpatient (CLI) | payer OTHER, SELFPAY ==
--- NOTE | ~2025-06-20 | MM_ITS ---
EXAMINATION: MM screening [facility] BI w reynaldo HISTORY: Screening TECHNIQUE: Craniocaudal and mediolateral oblique 3-D tomosynthesis images were obtained and synthetic 2-D images were generated. CAD analysis was submitted and interpreted. COMPARISON: Comparison to multiple prior studies sequentially, with oldest reviewed study dated 01/02/2021. BREAST PARENCHYMAL COMPOSITION: Not dense: There are scattered areas of fibroglandular density. FINDINGS: There is no evidence of suspicious mass, calcification, or architectural distortion to suggest malignancy in either breast. There has been no suspicious interval change. IMPRESSION: 1. No mammographic evidence of malignancy. 2. Recommend routine screening mammography in one year. BI-RADS Category 1: Negative Reviewed, dictated and finalized at location O. [employer]OR [employer]OO[employer]
== END 2025-06-20 09:40 | disposition home or self-care (01) ==
LOC: MICIMG 09:41
PROVIDERS: PCP Obstetrics & Gynecology; Visit Provider Emergency Medicine
DX: Z12.31 Encounter for screening mammogram for malignant neoplasm of breast (principal)
CPT/HCPCS: 77063; 77067

== ENCOUNTER 2025-06-21 09:59 | Outpatient (CLI) | payer OTHER, SELFPAY ==
--- OUTSIDE RECORDS SUMMARY | 2025-06-21 10:03 | XMS_ITS | Clinical Summary ---
Author Organization [facility] Address [address] [place] [id number] Care Team Providers Care Saw Superintendent Name Role Phone Unavailable Primary Care Provider Unavailabl e Social History Tobacco Use Types Packs/Day Years Used Date Smoking Tobacco: Never Assessed Comments Unknown Sex and Gender Information Value Date Recorded Sex Assigned at Not on file Legal Sex Female 7:15 PM CDT Gender Identity Not on file Sexual Orientation Not on file Plan of Treatment Health Maintenance Due Date Last Done Comments Cervical Cancer Screening Pa p Smear (Age 30 to 64) Every 3 Years 1969 Colorectal Cancer Screening Colonoscopy (10 Years) 1969 Annual Physical 1972 Hepatitis C 1987 DTaP, Tdap and Td Vaccines ( 1 - Tdap) 1988 Hepatitis B Vaccines (1 of 3 - 19+ 3-dose series) 1988 Cervical Cancer Screening Pa p with HPV Testing (Age 30 to 64) Every 5 Years 1999 Cervical Cancer Screening with HPV 1999 Mammogram Screening 2009 Pneumococcal Vaccine: 50+ Ye ars (1 of 1 - PCV) 2019 Zoster Vaccines (1 of 2) 2019 COVID-19 Vaccine ( - 2024-2 6 season) 2025 Influenza Adult (#1) 2025 Hepatitis A Vaccines Aged Out No long er eligible based on patient's age to complete this topic Meningococcal B Vaccine Aged Out No l onger eligible based on patient's age to complete this topic Meningococcal Vaccine Aged Out No kristian cait eligible based on patient's age to complete this topic RSV Immunizations Under 20 Months Aged Out No longer eligible based on patient's age to complete this topic
[2025-06-21 11:01] LABS: Hematocrit 38.1 % (37.0-47.0); Hemoglobin 12.5 g/dL (12.0-15.0); Immature Granulocyte Percent A 0.3 % (0-0.5); Lymphocytes Absolute Auto 1.43 K/mm3 (0.9-3.2); Mean Corpuscular HGB Conc 32.8 g/dl (32-36); Mean Corpuscular Hemoglobin 28.0 pg (26-34); Mean Corpuscular Volume 85.4 fl (80-100); Nucleated Red Blood Cells Absolute Auto 0.000 K/mm3 (0.0-0.012); Nucleated Red Blood Cells Perc 0.0 % (0.0-0.2); Platelet Count Result 248 k/mm3 (150-375); Red Blood Count 4.46 M/mm3 (4.2-5.4); White Blood Count 6.4 K/mm3 (4.5-10.0)
[2025-06-21 11:11] LABS: Hemoglobin A1C 7.2 % (<5.7)
[2025-06-21 11:35] LABS: Alanine Aminotransferase 18 U/L (6-35); Albumin Level 4.4 g/dL (3.5-5.1); Alkaline Phosphatase 67 U/L (38-126); Anion Gap 8 mmol/L (4-12); Aspartate Amino Transferase 26 U/L (14-36); Bilirubin,Total 0.6 mg/dL (0.2-1.3); Blood Urea Nitrogen 15 mg/dL (7-17); Calcium 9.0 mg/dL (8.4-10.2); Carbon Dioxide 26 mmol/L (22-30); Chloride 105 mmol/L (98-107); Cholesterol 113 mg/dL (0-200); Estimated Glomerular Filt Rate > 60; Glucose 129 mg/dL (65-110); HDL Direct 49 mg/dL; Potassium 3.9 mmol/L (3.4-5.0); Sodium 139 mmol/L (137-145); Total Protein 7.3 g/dL (6.3-8.2); Triglycerides 133 mg/dL (<150)
[2025-06-21 11:48] LABS: MALB Creatinine Ratio < 5.8 mg/g (0-30)
[2025-06-21 12:10] LABS: Thyroid Stimulating Hormone 1.960 uIU/mL (0.465-4.680)
== END 2025-06-21 10:00 | disposition home or self-care (01) ==
LOC: ANHLAB 10:01
PROVIDERS: PCP Obstetrics & Gynecology; Visit Provider Emergency Medicine
DX: E55.9 Vitamin D deficiency, unspecified (principal); E11.9 Type 2 diabetes mellitus without complications; E78.5 Hyperlipidemia, unspecified; I10 Essential (primary) hypertension; R53.83 Other fatigue
CPT/HCPCS: 36415; 80053; 80061; 82043; 82306; 83036; 84443; 85025